=== PATIENT | female | born 1980 | race Caucasian/White ===

== ENCOUNTER 2016-07-21 14:54 | Emergency (ER) | payer MEDICAID, OTHER ==
[~2016-07-21] VITALS: Ht 157.5 cm; Wt 68.5 kg
[2016-07-21 14:59] VITALS: Ht 157.5 cm; Wt 68.5 kg
[2016-07-21] MEDS ORDERED: KETOROLAC 60 MG INJ IM STA (16:52)
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
[2016-07-21] MEDS ORDERED: TRAM50TA2 PO (20:13)
[2016-07-21] MEDS ORDERED: CYCL-319 PO (20:13)
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
[2016-07-21 21:02] VITALS: BP 109/59; PULSE 53; RESP 16; TEMP 97.9
== END 2016-07-21 21:03 | disposition home or self-care (01) ==
LOC: FTE 14:54
DX: S39.92XA Unspecified injury of lower back, initial encounter (principal); V49.40XA Driver injured in collision with unspecified motor vehicles in traffic accident, initial encounter
CPT/HCPCS: 72100; 96372; J1885; Z7502

== ENCOUNTER 2017-01-21 17:30 | Emergency (ER) | payer OTHER ==
[~2017-01-21] VITALS: Wt 67.5 kg
[~2017-01-21 17:30] MED LIST: CYCL-319 PO; TRAM50TA2 PO
[2017-01-21 18:07] LABS: ADD UMIC NO; UR ASCORBIC ACID 20 mg/dL (NEGATIVE); UR BILIRUBIN (Dip) NEGATIVE (NEGATIVE); UR BLOOD (Dip) NEGATIVE (NEGATIVE); UR CLARITY CLEAR (CLEAR); UR COLOR YELLOW (YELLOW); UR GLUCOSE (Dip) NEGATIVE (NEGATIVE); UR KETONES (Dip) TRACE mg/dL (NEGATIVE); UR LEUKOCYTE ESTERASE (Dip) NEGATIVE Leu/ul (NEGATIVE); UR NITRITE (Dip) NEGATIVE (NEGATIVE); UR SPECIFIC GRAVITY (Dip) 1.026 (1.003-1.030); UR TOTAL PROTEIN (Dip) NEGATIVE (NEGATIVE); UR UROBILINOGEN (Dip) NEGATIVE (NEGATIVE)
--- NOTE | 2017-01-21 19:41 | ERA ---
ER Documentation Chief Complaint Date/Time DATE: 01/21/17 TIME: 19:36 Chief Complaint GLF WHILE PLAYING SOFTBALL, BACK PAIN, HEAD PAIN, HAPPENED 5 DAYS AGO HPI 36-year-old female presenting 4 days status post mechanical fall with impact to coccyx/sacrum while playing baseball. Patient denies pain lasting more than 6 weeks, saddle parasthesia, incontinence, RPND, or pain exacerbated by valsalva. Denies fever, chills, night sweats, weight loss, or increase symptoms at night. Patient also denies history of cardiovascular disease, sciatica, cancer, HIV, IVDU, arthritis or recent surgery. Patient has no other complaints and describes no other associated manifestations. Nursing notes have been reviewed and are consistent with history given. ROS All systems reviewed and are negative except as per history of present illness. Medications Home Meds Active Scripts Cyclobenzaprine Hcl* (Cyclobenzaprine Hcl*) 10 Mg Tablet, 10 MG PO TID, #15 TAB Prov:HIEN OATES MD 07/21/16 Tramadol HCl (Tramadol HCl) 50 Mg Tablet, 50 MG PO Q4 Y for PAIN, #20 TAB Prov:HIEN OATES MD 07/21/16 Allergies Allergies: Coded Allergies: No Known Allergy (Verified , 09/04/15) PMhx/Soc Medical and Surgical Hx: pt denies Medical Hx History of Surgery: Yes (CSECTION x2 , tubal ligation) Anesthesia Reaction: No Hx Neurological Disorder: No Hx Respiratory Disorders: No Hx Cardiac Disorders: No Hx Psychiatric Problems: No Hx Miscellaneous Medical Probl: No Hx Alcohol Use: No Hx Substance Use: No Hx Tobacco Use: No Smoking Status: Never smoker Physical Exam Vitals Vital Signs Date Time Temp Pulse Resp B/P Pulse Ox O2 Delivery O2 Flow Rate FiO2 01/21/17 17:33 98.0 64 17 120/58 100 Physical Exam Const: Well-appearing. Mild distress. Back: No lumbar midline tenderness, no flank tenderness. No CVA tenderness. Negative straight leg raise test. Mild tenderness of the lower sacrum with patient's own palpation. Range of motion decreased secondary to pain. Neur: No saddle anesthesia. Neurovascularly intact bilaterally. Head: Normocephalic, Atraumatic. Eyes: Non-injected; No discharge. EOMI and DONOVAN bilaterally. Ears: Normal External Ears, EACs clear, TM normal bilaterally without erythema. Nose: Normal external nose; no discharge, or sinus tenderness. Oral: No oral edema visualized. Mucous membranes moist and pink. Neck: No tenderness. No cervical lymphadenopathy, or masses palpated. Supple ~ No meningismus. Pulm: Good air movement in upper and lower respiratory tracts. Clear to auscultation bilaterally. No dyspnea or stridor. Cardio: Regular rate and rhythm; No murmurs, gallops or rubs auscultated. Radia pulses 2+ bilaterally. No cyanosis noted. Capillary refill less than 2 seconds. Abd: Normal bowel sounds. Soft, non tender, non distended. MS: Normal motor strength, normal tone with gross examination. Skin: No petechiae or rashes. Good turgor. Ext: No edema. Normal movement of all extremities grossly observed. Psych: Normal Mood and Affect. Results 24 hrs Laboratory Tests Test 01/21/17 17:50 Urine Color YELLOW Urine Clarity CLEAR Urine pH 6.0 Urine Specific Martin 1.026 Urine Ketones TRACEmg/dL Urine Nitrite NEGATIVEmg/dL Urine Bilirubin NEGATIVEmg/dL Urine Urobilinogen NEGATIVEmg/dL Urine Leukocyte Esterase NEGATIVELeu/ul Urine Hemoglobin NEGATIVEmg/dL Urine Glucose NEGATIVEmg/dL Urine Total Protein NEGATIVEmg/dl Procedures/MDM 36-year-old female presenting 4 days status post mechanical fall with impact to Kocsis/lower sacrum. Patient had mild tenderness per history. Refused pain medications in the ED. There is currently no red flags for neurovascular compromise, but due to history of trauma x-ray was obtained, read by the radiologist, given the following impression: No acute fracture. test was negative. At this time I do not suspect cauda equina syndrome, spinal cord compression, aortic aneurysm, aortic dissection, epidural abscess, spinal hematoma, obstructive nephrolithiasis, pyelonephritis, or neurovascular compromise. Patient will be discharged with [place] 5/325 mg p.o as needed for pain 7 tabs. I have spoke with the patient regarding their condition and future management. They have verbally responded that they understand their status and treatment plan. The patients vitals are stable, and their current condition is appropriate for discharge. The patient will be given discharge instructions with return precautions. Departure Diagnosis: Primary Impression: Coccyx pain Additional Instructions: Follow up with your PCP within the next 1-3 days for a more thorough evaluation and a possible referral to a specialist. Return the the emergency department immediately if symptoms worsen or change. If you have any questions regarding medications, ask your pharmacist or us before you leave. If any adverse reactions occur while taking your medications, discontinue the treatment and return to the emergency department immediately. Take your medications as directed, and complete the entire course of treatment. COLBY NEWBY PA-C Jan 21, 2017 19:41
--- NOTE | 2017-01-21 19:52 | RADRPT ---
PROCEDURE: X-ray sacrum and coccyx. CLINICAL INDICATION: Pain. TECHNIQUE: 4 views of the sacrum and coccyx in the AP and lateral projections. COMPARISON: None FINDINGS: No acute fracture or dislocation. Soft tissues unremarkable. IMPRESSION: No acute fracture. RPTAT: [facility] Physician Amie Date Time Electronically viewed and signed by Physician Amie on 01/21/2017 19:51 RS/
[2017-01-21] MEDS ORDERED: HYDR-906 PO (20:01)
[2017-01-21 20:17] VITALS: BP 108/58; PULSE 54; RESP 16
== END 2017-01-21 20:20 | disposition home or self-care (01) ==
LOC: FTE 17:30
DX: M54.5 Low back pain (principal)
CPT/HCPCS: 72220; 81003; Z7502

== ENCOUNTER 2017-02-02 12:44 | Emergency (ER) | payer OTHER ==
[~2017-02-02] VITALS: Ht 157.5 cm; Wt 54.0 kg
[~2017-02-02 12:44] MED LIST changes: +HYDR-906 PO
[2017-02-02 12:46] VITALS: Ht 157.5 cm; Wt 54.0 kg
[2017-02-02] MEDS ORDERED: IBUPROFEN 200 MG TAB PO ONE (15:00)
--- NOTE | 2017-02-02 15:59 | RADRPT ---
AMENDMENT: 02/02/2017 4:43:39 PM Chase Dorantes M.D TECHNIQUE: 3 views of the right foot were obtained. The images were reviewed on a PACS workstatio n. PROCEDURE: XR Foot. CLINICAL INDICATION: Right foot pain. Injury while playing soccer TECHNIQUE: Single lateral view of the right foot was obtained. The images were reviewed on a PACS workstation. COMPARISON: None. FINDINGS: Exam is limited as only a single lateral view was obtained. The bones of the foot appear intact, wi th no evidence of fracture, dislocation, or subluxation. The joint spaces are preserved. Bone minera lization is normal. Mild dorsal soft tissue swelling is seen at the level of the MTP joints. The re maining soft tissue structures are intact. IMPRESSION: Mild dorsal soft tissue swelling. RPTAT: HPNM Physician Kevin Date Time Electronically viewed and signed by Physician Kevin on 02/02/2017 16:43 /
[2017-02-02] MEDS ORDERED: IBUP400T22 PO (17:21)
--- NOTE | 2017-02-02 17:26 | ERD ---
ER Documentation Chief Complaint Date/Time DATE: 02/02/17 TIME: 17:23 Chief Complaint RIGHT FOOT PAIN S/P PLAYING SOCCER YESTERDAY HPI 36-year-old female patient with no significant past medical history presents to the ED complaining of right foot injury that occurred yesterday. States that she was trying to kick a soccer ball and accidentally kicked the top of her foot onto the dirt. Reports that when she bears weight, it worsens the pain. Describes the pain as a pressure-like sensation and rates it a 9 out of 10. Denies taking any medications. Denies any fever, chills, loss of sensation, numbness or tingling, lacerations, abrasions. ROS All systems reviewed and are negative except as per history of present illness. Medications Home Meds Active Scripts Ibuprofen* (Motrin*) 400 Mg Tab, 400 MG PO Q6, #30 TAB Prov:MILLI CHUNG PA-C 02/02/17 Hydrocodone/Acetaminophen ([place] 5-325 Tablet) 1 Each Tablet, 1 TAB PO Q6H Y for PAIN, #7 TAB Prov:COLBY NEWBY PA-C 01/21/17 Cyclobenzaprine Hcl* (Cyclobenzaprine Hcl*) 10 Mg Tablet, 10 MG PO TID, #15 TAB Prov:HIEN OATES MD 07/21/16 Tramadol HCl (Tramadol HCl) 50 Mg Tablet, 50 MG PO Q4 Y for PAIN, #20 TAB Prov:HIEN OATES MD 07/21/16 Allergies Allergies: Coded Allergies: No Known Allergy (Verified , 02/02/17) PMhx/Soc History of Surgery: Yes (CSECTION x2 , tubal ligation) Anesthesia Reaction: No Hx Neurological Disorder: No Hx Respiratory Disorders: No Hx Cardiac Disorders: No Hx Psychiatric Problems: No Hx Miscellaneous Medical Probl: No Hx Alcohol Use: No Hx Substance Use: No Hx Tobacco Use: No Smoking Status: Never smoker Physical Exam Vitals Vital Signs Date Time Temp Pulse Resp B/P Pulse Ox O2 Delivery O2 Flow Rate FiO2 02/02/17 12:46 97.8 78 18 132/58 98 Physical Exam Const: [id number], well-nourished. In no acute distress. Head: Atraumatic, normocephalic Eyes: Normal Conjunctiva without injection ENT: Normal external ear, nose and mouth. Neck: Full range of motion. No meningismus. Resp: Clear to auscultation bilaterally. No wheezing, rhonchi, rales, or crackles. No accessory muscle use. No retractions. Cardio: Regular rate and rhythm, no murmurs Skin: No petechiae or rashes Back: No midline tenderness. No CVA tenderness. Ext: No cyanosis, or edema. Cap refill less than 2 seconds. Distal pulses intact bilaterally. Tenderness palpation of the dorsal aspect of patient's right foot. No erythema or edema. No deformities. No lacerations or abrasions. Neur: Awake and alert. Normal gait and coordination. Muscle strength 5/5. Sensation intact bilaterally. Psych: Normal Mood and Affect Results 24 hrs Current Medications Medications (Trade) Dose Ordered Sig/Bebeto Route PRN Reason Start Time Stop Time Status Last Admin Dose Admin Ibuprofen (Motrin) 400 mg ONCE ONCE PO 02/02/17 15:00 02/02/17 15:02 DC 02/02/17 14:47 Procedures/MDM 36-year-old female patient with no significant past medical history presents to the ED complaining of right foot injury. Patient is afebrile and nontoxic- appearing. Patient has normal vital signs. A right foot x-ray was ordered to further evaluate patient. AMENDMENT: 02/02/2017 4:43:39 PM Chase Dorantes M.D TECHNIQUE: 3 views of the right foot were obtained. The images were reviewed on a PACS workstation. PROCEDURE: XR Foot. CLINICAL INDICATION: Right foot pain. Injury while playing soccer TECHNIQUE: Single lateral view of the right foot was obtained. The images were reviewed on a PACS workstation. COMPARISON: None. FINDINGS: Exam is limited as only a single lateral view was obtained. The bones of the foot appear intact, with no evidence of fracture, dislocation, or subluxation. The joint spaces are preserved. Bone mineralization is normal. Mild dorsal soft tissue swelling is seen at the level of the MTP joints. The remaining soft tissue structures are intact. IMPRESSION: Mild dorsal soft tissue swelling. Patient is placed in an Hussain wrap. Crutches were given to patient to help with ambulation. Splint Assessment: Neurovascularly intact pre and post splint placement with good fit. Patient's extremity symptoms have stabilized while they have been evaluated in the department and are appropriate for outpatient follow up. No evidence of fractures, dislocations, compartment syndrome, neurologic injury, vascular injury, open joint, open fracture, tendon laceration , septic arthritis, osteomyelitis, DVT, foreign body, or other emergent conditions. Discharge medications: Ibuprofen Follow up with primary care physician in 1-2 days for a referral to an orthopedic physician if symptoms do not improve. Instructed patient to return to the ED sooner for any worsening symptoms. Patient's questions were answered. Patient understood and agreed with discharge plan. Patient discharged stable. Departure Diagnosis: Primary Impression: Foot injury Encounter type: initial encounter Laterality: right Qualified Code: S99.921A - Injury of right foot, initial encounter Condition: Stable Patient Instructions: Contusion, Foot, Sprain Foot Referrals: [facility] YOU HAVE RECEIVED A MEDICAL SCREENING EXAM AND THE RESULTS INDICATE THAT YOU DO NOT HAVE A CONDITION THAT REQUIRES URGENT TREATMENT IN THE EMERGENCY DEPARTMENT. FURTHER EVALUATION AND TREATMENT OF YOUR CONDITION CAN WAIT UNTIL YOU ARE SEEN IN YOUR DOCTORS OFFICE WITHIN THE NEXT 1-2 DAYS. IT IS YOUR RESPONSIBILITY TO MAKE AN APPOINTMENT FOR FOLOW-UP CARE. IF YOU HAVE A PRIMARY DOCTOR --you should call your primary doctor and schedule an appointment IF YOU DO NOT HAVE A PRIMARY DOCTOR YOU CAN CALL OUR PHYSICIAN REFERRAL HOTLINE AT IF YOU CAN NOT AFFORD TO SEE A PHYSICIAN YOU CAN CHOSE FROM THE FOLLOWING [facility] [address] [facility]. [facility] [address] [facility]. [facility] [address] [facility] [address] [facility]. [facility] [address] [facility]. [facility]. [address] [facility]. [facility] YOU HAVE RECEIVED A MEDICAL SCREENING EXAM AND THE RESULTS INDICATE THAT YOU DO NOT HAVE A CONDITION THAT REQUIRES URGENT TREATMENT IN THE EMERGENCY DEPARTMENT. FURTHER EVALUATION AND TREATMENT OF YOUR CONDITION CAN WAIT UNTIL YOU ARE SEEN IN YOUR DOCTORS OFFICE WITHIN THE NEXT 1-2 DAYS. IT IS YOUR RESPONSIBILITY TO MAKE AN APPOINTMENT FOR FOLOW-UP CARE. IF YOU HAVE A PRIMARY DOCTOR --you should call your primary doctor and schedule and appointment IF YOU DO NOT HAVE A PRIMARY DOCTOR YOU CAN CALL OUR PHYSICIAN REFERRAL HOTLINE AT . IF YOU CAN NOT AFFORD TO SEE A PHYSICIAN YOU CAN CHOSE FROM THE FOLLOWING [facility] INSTITUTIONS: [facility] [address] [place] [address] [facility] [address] [place] [address] [facility] [address] [place] [address] [facility] Urgent Care 7 a.m.- 11 p.m. Every Day of the Week NO APPOINTMENT OR AUTHORIZATION NEEDED SO [facility] Hours: Mon-Fri 9:00 AM - 5:00 PM Additional Instructions: Call your primary care doctor TOMORROW for an appointment during the next 2-3 days for a referral to an orthopedic physician if symptoms do not improve.See the doctor sooner or return here if your condition worsens before your appointment time. MILLI CHUNG PA-C Feb 02, 2017 17:26
== END 2017-02-02 17:24 | disposition home or self-care (01) ==
LOC: FTE 12:44
DX: S99.921A Unspecified injury of right foot, initial encounter (principal); W22.8XXA Striking against or struck by other objects, initial encounter; Y92.322 Soccer field as the place of occurrence of the external cause
CPT/HCPCS: 73630; Z7502; Z7610